=== PATIENT | female | born 1950 | race Caucasian/White ===

== ENCOUNTER 2016-12-06 10:41 | Inpatient (IN) | payer OTHER ==
[~2016-12-06] VITALS: Ht 160 cm; Wt 72.6 kg
[2016-12-06] MEDS ORDERED: METOPROLOL TART25 MG PO (13:51)
[2016-12-06] MEDS ORDERED: MOBIC7.5 MG PO (13:52)
[2016-12-06] MEDS ORDERED: FISH OIL 10001000 MG PO (13:52)
[2016-12-06] MEDS ORDERED: ASPIRIN81 MG PO (13:52)
[2016-12-06] MEDS ORDERED: FLONASE ALLER15.8 ML INH (13:53)
[2016-12-06] MEDS ORDERED: ANTIVERT 25MG T25 MG PO (13:53)
[2016-12-07 04:02] LABS: RED BLOOD COUNT 3.69 M/UL (4.00-5.10); WHITE BLOOD COUNT 11.2 K/UL (4.5-11.0)
[2016-12-07 04:21] LABS: BUN/CREATININE RATIO 23 (0-10)
== END 2016-12-07 12:05 | disposition home or self-care (01) | DRG 395 ==
LOC: PROG CARE 12:51
PROVIDERS: ADMIT Internal Medicine
DX: K40.30 Unilateral inguinal hernia, with obstruction, without gangrene, not specified as recurrent (principal); I10 Essential (primary) hypertension; E66.9 Obesity, unspecified; M19.90 Unspecified osteoarthritis, unspecified site; K57.90 Diverticulosis of intestine, part unspecified, without perforation or abscess without bleeding; Z68.28 Body mass index [BMI] 28.0-28.9, adult; Z98.61 Coronary angioplasty status; Z88.2 Allergy status to sulfonamides; Z79.82 Long term (current) use of aspirin; Z82.49 Family history of ischemic heart disease and other diseases of the circulatory system; Z83.3 Family history of diabetes mellitus
CPT/HCPCS: 36415; 80048; 82962; 83036; 85027; J7030